=== PATIENT | male | born 1930 | race Caucasian/White ===

== ENCOUNTER 2017-06-02 16:36 | Observation (INO) | payer OTHER ==
[~2017-06-02] VITALS: Ht 182.9 cm; Wt 76.2 kg
[~2017-06-02 16:36] MED LIST: CARVEDILOL3.125 M1 PO; ECOTRIN81 MG PO; FLO4 PO; FUROSEMIDE20 MG PO; LEVOTHYROXINE0.05 M2 PO; PRADAXA150 M1 PO; RAMIPRIL2.5 MG PO; SIMVASTATIN40 M1 PO; TEN25 PO; VASOTEC20 MG PO; XALATAN2.5 ML OU; ZOCOR40 MG PO
[2017-06-02 17:27] LABS: BASOPHIL % 0.3 % (0-2); PLATELET COUNT 144 x10^3mcL (130-400); RED CELL DISTRIBUTION WIDTH 14.5 % (11.5-14.5)
[2017-06-02 17:41] LABS: CALCIUM 8.8 mg/dL (8.5-10.1); CARBON DIOXIDE 29.7 mmol/L (21-32); CHLORIDE SERUM 102 mmol/L (98-107); CREATININE SERUM 1.6 mg/dL (0.7-1.3); GLUCOSE SERUM 115 mg/dL (74-106); POTASSIUM SERUM 4.3 mmol/L (3.5-5.1); SODIUM SERUM 137 mmol/L (136-145)
[2017-06-02 17:45] LABS: ALBUMIN 3.7 g/dL (3.4-5.0); ALT/SGPT 25 U/L (16-63); C REACTIVE PROTEIN 1.2 mg/dL (<=0.9)
[2017-06-02 17:55] LABS: CK-MB 3.2 ng/mL (0-3.6)
[2017-06-02 17:59] LABS: T3 TOTAL 0.9 ng/mL
[2017-06-02 18:08] LABS: FREE T4 1.02 ng/dL (0.76-1.46); T4(THYROXINE) 9.5 ug/dL (4.7-13.3)
[2017-06-02 18:09] LABS: ALKALINE PHOSPHATASE 64 U/L (46-116); AST/SGOT 32 U/L (15-37); BILIRUBIN TOTAL 0.7 mg/dL (0.20-1.00); TOTAL PROTEIN, SERUM 7.9 g/dL (6.4-8.2)
[2017-06-02] MEDS ORDERED: NEURONTIN100 MG PO (18:17)
[2017-06-02] MEDS ORDERED: Z5 PO (18:18)
[2017-06-02] MEDS ORDERED: LASIX20 MG PO ×2 (18:19→19:43)
[2017-06-02] MEDS ORDERED: CARVEDILOL6.25 M1 PO (18:19)
[2017-06-02] MEDS ORDERED: FLORASTOR1 CAP PO (18:19)
[2017-06-02] MEDS ORDERED: PRADAXA150 M1 PO (18:20)
[2017-06-02] MEDS ORDERED: NITRO-DUR0.2 MG/HR TD (18:20)
[2017-06-02] MEDS ORDERED: GENTEAL TEARS 015 M1 OP (18:21)
[2017-06-02] MEDS ORDERED: ELIQUIS2.5 MG PO (18:21)
[2017-06-02] MEDS ORDERED: LEVOXYL0.075 MG PO (18:21)
[2017-06-02 18:55] LABS: ERYTHROCYTE SED RATE 39 mm/hr (0-20)
[2017-06-02 18:59] LABS: CHOLESTEROL/HDL RATIO 3.6; MAGNESIUM 2.1 mg/dL (1.8-2.4); PHOSPHOROUS 3.1 mg/dL (2.5-4.9)
[2017-06-02 19:16] VITALS: BP 146/60
[2017-06-02] MEDS ORDERED: LEVOTHYROXINE0.05 M2 PO (19:50)
[2017-06-02] MEDS ORDERED: DIG125 PO (19:51)
[2017-06-03 05:48] VITALS: BP 137/55
[2017-06-03 06:20] LABS: microscopic required? NO
[2017-06-03 06:32] LABS: urine erythrocyte NEGATIVE (NEGATIVE)
[2017-06-03 07:23] LABS: CALCIUM 8.7 mg/dL (8.5-10.1); CARBON DIOXIDE 26.9 mmol/L (21-32); CHLORIDE SERUM 103 mmol/L (98-107); CREATININE SERUM 1.4 mg/dL (0.7-1.3); GLUCOSE SERUM 88 mg/dL (74-106); MAGNESIUM 2.2 mg/dL (1.8-2.4); PHOSPHOROUS 3.2 mg/dL (2.5-4.9); POTASSIUM SERUM 3.8 mmol/L (3.5-5.1); SODIUM SERUM 138 mmol/L (136-145)
[2017-06-03 07:30] LABS: BASOPHIL % 0.2 % (0-2); RED CELL DISTRIBUTION WIDTH 14.3 % (11.5-14.5)
[2017-06-03 07:46] LABS: PLATELET COUNT 116 x10^3mcL (130-400)
[2017-06-03 09:44] VITALS: BP 134/54
[2017-06-03] MEDS ORDERED: BD LACTINEX1.4 MG PO (10:28)
[2017-06-03] MEDS ORDERED: CLINDAMYCIN HC300 MG PO (10:28)
[2017-06-03 11:22] VITALS: BP 134/54
[2017-06-03 13:41] VITALS: BP 113/81
[2017-06-07 09:43] VITALS: Ht 182.9 cm; Wt 76.2 kg
== END 2017-06-03 15:58 | disposition home or self-care (01) | DRG 602 ==
LOC: ED 16:36 → DU 17:51
PROVIDERS: Family Medicine; Specialist
DX: L03.032 Cellulitis of left toe (principal); N17.0 Acute kidney failure with tubular necrosis; B95.62 Methicillin resistant Staphylococcus aureus infection as the cause of diseases classified elsewhere; I73.9 Peripheral vascular disease, unspecified; S90.41 Abrasion of toe; M19.072 Primary osteoarthritis, left ankle and foot; G62.9 Polyneuropathy, unspecified; I50.9 Heart failure, unspecified; E78.1 Pure hyperglyceridemia; N40.0 Benign prostatic hyperplasia without lower urinary tract symptoms; R73.03 Prediabetes; E03.9 Hypothyroidism, unspecified; Z95.0 Presence of cardiac pacemaker; Z95.1 Presence of aortocoronary bypass graft; Z85.21 Personal history of malignant neoplasm of larynx; Z93.0 Tracheostomy status; Z85.828 Personal history of other malignant neoplasm of skin; W01.0XXS Fall on same level from slipping, tripping and stumbling without subsequent striking against object, sequela
CPT/HCPCS: 36600; 83880; 84439; 97110-GP; G0378; J2543; J3490; J7030; Q0092